=== PATIENT | female | born 2000 | race Hispanic/Latino ===

== ENCOUNTER 2024-03-29 09:35 | Emergency (ER) | payer OTHER ==
[~2024-03-29] VITALS: Ht 152.4 cm; Wt 61.2 kg
[2024-03-29] MEDS ORDERED: TETRACAINE HCL 0.5% 4 ML BTL OS ONE (10:00)
[2024-03-29 10:20] VITALS: BP 121/76
== END 2024-03-29 10:20 | disposition home or self-care (01) ==
LOC: ED 09:35
DX: T55.1X1A Toxic effect of detergents, accidental (unintentional), initial encounter (principal); H10.212 Acute toxic conjunctivitis, left eye
CPT/HCPCS: 99283